=== PATIENT | female | born 1970 | race Caucasian/White ===

== ENCOUNTER 2024-06-08 05:10 | Emergency (ER) | payer BC, SELFPAY ==
[2024-06-08] VITALS (11 sets, daily range): BP systolic 95–115; BP diastolic 64–97; PULSE 92–106; BMI 32.3
[2024-06-08 05:45] LABS: % Basophils 0.3 % (0-2); % Eosinophils 0.4 % (0-6); % Immature Granulocytes 0.4 % (0-0.5); % Lymphocytes 9.7 % (20.5-51.1); % Monocytes 3.4 % (1.7-9.3); % Neutrophils 85.8 % (42.2-75.2); Absolute Lymphocytes 1.1 10^3/uL (1.2-3.4); Absolute Monocytes 0.4 10^3/uL (0.1-0.6); Absolute Neutrophils 9.6 10^3/uL (1.4-6.5); Hematocrit 39.1 % (37.0-47.0); Hemoglobin 13.9 g/dL (12.0-16.0); Mean Corp Hgb Conc. 35.5 g/dL (33.0-37.0); Mean Corpuscular Hgb 30.5 pg (27.0-31.0); Mean Corpuscular Volume 85.9 fL (81.0-99.0); Mean Platelet Volume 10.7 fL (7.4-10.4); Nucleated Red Blood Cells % 0 %; Platelet Count 346 10^3/uL (130-400); Red Blood Cell Count 4.55 10^6/uL (4.20-5.40); Red Cell Dist. Width 11.9 % (11.5-14.5); White Blood Cell Count 11.2 10^3/uL (4.8-10.8)
[2024-06-08 06:00] LABS: Troponin I < 0.012 ng/ml
--- NOTE | 2024-06-08 06:16 | ED.GENMED ---
History of Present Illness
General
Chief Complaint: Fainting/Passed Out
Time Seen by Provider: 06/08/24 06:03
History of Present Illness
History of Present Illness:
Patient is a 53-year-old woman with history of hypertension presenting to the emergency department after syncopal event. Patient states that she woke up this morning to use the bathroom. She urinated and there was washing her hands when she
started to get sweaty and thought she was having a hot flash which was normal to her. She does remember getting nauseous. The Nexium that she remembers that she woke up on the ground. She did hit her head. heard a thud and said that she
was only out for a few seconds. No urinary incontinence. No tongue biting. She was slightly confused for a few seconds. Her complaint is left-sided head pain after the fall. She also states that her indigestion has been acting up. She states
that she only had chicken tenders and some nuts and did not have a real dinner. She does usually have heartburn. She denies any chest pain or shortness of breath. No numbness tingling. No weakness. No hemoptysis leg swelling history of heart
problems or history of blood clots. She states that during that moment when she passed out she does not member much besides getting the hot flash and nausea. She states that currently she has lightheaded dizzy with any position changes and is
having occasional palpitations. She denies any palpitations during the actual event. No fevers chills. No nausea or vomiting. No diarrhea
Past History
Past History
ED Past Medical History: None
ED Past Surgical History: None
Social History
Tobacco: Non-smoker
Personal:
Family History
Family History: Negative Early CAD or CAD
Phy Exam
Physical Exam
Physical Exam:
GENERAL: in no acute distress
HEENT: normocephalic, extraocular movements intact, moist oral mucosa, tenderness over left posterior occiput with small hematoma, no obvious bleeding or laceration
NECK: normal inspection, no cervical spinal tenderness
RESPIRATORY: no respiratory distress, clear to auscultation bilaterally
CARDIOVASCULAR: regular rate and rhythm
ABDOMEN/: soft, non-distended, non-tender to palpation, no rebound or guarding
EXTREMITIES: non-tender, no edema/swelling
NEUROLOGIC: awake and alert, moves all extremities, no gross motor or sensory deficits
SKIN: warm
Course
Orders/Labs/Results
Orders:
Orders
06/08/24 05:12
Electrocardiogram (*1) Urgent
Reason for Study: Syncope
06/08/24 05:13
EKG- Treatment ONCE
Test Result ONCE
06/08/24 05:25
Complete Blood Count/With Diff Urgent
Comprehensive Metabolic Panel Urgent
HCG, Serum Qualitative Screen Urgent
Magnesium Urgent
TSH Reflex To Free T4 Urgent
Comment: ADD ON
Troponin I Urgent
06/08/24 05:27
CT Head W/o Iv Contrast Urgent
Comment:
Reason For Exam: fall with head strike
Cervical Spine wo Contrast CT [CT Cervical Spine W/o Iv Contr] Urgent
Comment:
Reason For Exam: fall with head strike
06/08/24 06:15
Add On- LAB Urgent
Tests Added?: magnesium, thyroid with reflex
EKG- Treatment ONCE
Orthostatic VS- Treatment ONCE
06/08/24 06:45
0.9% Sodium Chloride 1000 ml [Nss] 1,000 ml IV BOLUS
06/08/24 07:14
Acetaminophen [Tylenol] 1,000 mg .ROUTE .STK-MED ONE
06/08/24 07:15
Acetaminophen [Tylenol] 1,000 mg PO NOW STA
06/08/24 08:30
Electrocardiogram (*1) Urgent
Reason for Study: Chest Pain
06/08/24 08:44
Troponin I Urgent
06/08/24 09:36
Ibuprofen [Motrin] 600 mg PO NOW STA
Abnormal Lab Results
06/08/24
05:25
WBC 11.2 H 10^3/uL
(4.8-10.8)
MPV 10.7 H fL
(7.4-10.4)
Absolute Neuts (auto) 9.6 H 10^3/uL
(1.4-6.5)
Absolute Lymphs (auto) 1.1 L 10^3/uL
(1.2-3.4)
Neutrophils % 85.8 H %
(42.2-75.2)
Lymphocytes % 9.7 L %
(20.5-51.1)
Chloride 108 H mmol/L
(98-107)
BUN 25 H mg/dl
(7-17)
Glucose 108 H mg/dl
(70-99)
Calcium 10.4 H mg/dl
(8.4-10.2)
06/08/24 05:25
06/08/24 05:25
Vital Signs
Pulse: 81
Blood pressure: 115/86
Initial and Last Documented VS:
Initial Vital Signs
Temp Pulse Resp BP Pulse Ox
98.1 F 89 16 107/82 100
06/08/24 05:16 06/08/24 05:16 06/08/24 05:16 06/08/24 05:16 06/08/24 05:16
Last Documented Vital Signs
Temp Pulse Resp BP Pulse Ox
98.1 F 81 20 115/86 100
06/08/24 05:16 06/08/24 10:40 06/08/24 07:45 06/08/24 10:40 06/08/24 05:30
MDM/Problems Addressed
Differential Diagnosis Includes:
Patient is a 53-year-old woman presenting to the emergency department after syncopal event. On arrival patient's blood pressure is 107/82 and exam is otherwise reassuring. Differential consists of vasovagal versus orthostatic syncope given that
patient is getting lightheaded dizzy with movements. Could be ACS given that patient is having some indigestion with the nausea. History exam not consistent with seizures or acute intracranial cause such as hemorrhage or stroke. History exam not
consistent with PE or AAA rupture. History and exam not consistent with cardiac arrhythmia. Patient is low risk based on [place] syncope rule which is reassuring. Initial troponin was negative. Will obtain delta troponin. EKG per my
interpretation with anterior T wave inversions which is new from 2012. Will obtain CT scan of the head and neck. Given the palpitations will check magnesium and thyroid.
*Critical Care Note
Total Time (30-74mins, 75-104mins- exclusive of procedures): Not Applicable
Update Note
Update Note:
Patient blood pressure still remains slightly low. Will give additional IV fluids. Patient does state that she is on an antihypertensive. I did advise patient to check her blood pressure daily and if it is low (less than 110 systolic) to hold it.
Per chart review does appear the patient's had low blood pressure last time she was admitted as well.
Blood work is reassuring. Delta troponin negative. Repeat EKG without any new changes. Will give pt cards to follow up with on a routine basis.
On reevaluation patient feels much better. Her BP has improved. She did ambulate without lightheadedness or dizziness. I did update patient of the findings on her CT scan of her neck. She will follow-up with primary care doctor. She does have
intermittent tingling of her fingers. The symptoms are not bothersome. I will give her neurosurgery in case symptoms worsen.
Patient does state that she feels slightly off. Her white count is slightly elevated. Her does state that she was having chills. Certainly could be the beginnings of a viral illness. She is afebrile here. She has no urinary symptoms
source. She does appear slightly congested. I did discuss with patient and at length. I did offer admission for monitoring given the syncopal event. However patient states that she does remember feeling 'off' with a hot flash which is
unusual. This could have been the prodrome to her passing out since it was not her typical hot flash. Regardless we did discuss admission versus discharge. At this time patient would prefer discharge home. Her will be with her today.
Will discharge at this time with strict return precautions.
ED Attending Note
-
Portions of this chart may have been created with voice recognition software.� Occasional wrong word or��sound alike� substitutions may have occurred due to the inherent limitations of voice recognition software.
Discharge Plan
Departure
Patient Disposition: Home (Routine Discharge)
Date of Disposition: 06/08/24
Time of Disposition: 10:40
Patient with high blood pressure during this ER visit?: No
Discharge Problem:
Syncope, Nonspecific ST-T wave electrocardiographic changes
Instructions: Syncope (Fainting) (DC)
Prescriptions:
No Action
ustekinumab [Stelara] 45 MG/0.5 ML syringe
45 mg SQ .[id number]
clonazepam 0.5 MG tablet
0.5 mg PO TID
Referrals:
Rafita Helms MD [Active] - Call in 1-3 days for appt (EKG changes)
Trisha Ugalde MD [Active] - As needed
UNKNOWN - PT DOES,NOT KNOW [Family Provider] -
Activity Restrictions/Additional Instructions:
1. Moderate spinal cord compression and central canal stenosis at C4/C5 secondary to a large central disc-osteophyte complex with an 8.2 mm ossification in the anterior epidural space. Ossification of the posterior longitudinal ligament is a
diagnostic possibility.
2. 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
3. Small left central disc herniation at C3/C4 causing mild spinal cord compression and central canal stenosis.
4. Mild kyphosis at C4/C5.
Interventions
Interventions:
*Risk Screen - Suicide Last Done: 06/08/24 05:16
*General Assessment Last Done: 06/08/24 05:16
*Neglect/Abuse Screening Last Done: 06/08/24 05:16
*ED COVID-19 Vaccine History Last Done: 06/08/24 05:16
ED- Cardiac Assessment Last Done: 06/08/24 05:33
ED- Neurological Assessment Last Done: 06/08/24 05:33
Discharge Date and Time
Print Language: CZECH
[2024-06-08 06:17] LABS: HCG, Serum Qualitative Screen Negative
[2024-06-08 06:25] LABS: ALT (SGPT) 18 U/L (0-35); AST (SGOT) 20 U/L (14-36); Albumin 4.8 g/dl (3.5-5.0); Alkaline Phosphatase 106 U/L (38-126); Blood Urea Nitrogen 25 mg/dl (7-17); Calcium 10.4 mg/dl (8.4-10.2); Carbon Dioxide 22 mmol/L (22-30); Chloride 108 mmol/L (98-107); Estimated Creatinine Clearance 82 ml/min; Glucose 108 mg/dl (70-99); Potassium 3.9 mmol/L (3.5-5.1); Sodium 142 mmol/L (135-145); Total Bilirubin 0.4 mg/dl (0.2-1.3); Total Protein 7.3 g/dl (6.3-8.2); eGFR > 60.00
[2024-06-08] MEDS: NSS 1000 IV (07:10)
[2024-06-08] MEDS: TYLENOL 1000 MG PO (07:15)
[2024-06-08 09:22] LABS: Troponin I < 0.012 ng/ml
[2024-06-08] MEDS: MOTRIN 600 MG PO (09:43)
== END 2024-06-08 10:50 | disposition home or self-care (01) ==
LOC: EMR 05:10
PROVIDERS: Emergency Medicine; EMERGENCY PHYSICIAN Student in an Organized Health Care Education/Training Program
DX: R55 Syncope and collapse (principal); R94.31 Abnormal electrocardiogram [ECG] [EKG]; I10 Essential (primary) hypertension
CPT/HCPCS: 99284; 96360; 70450; 72125; 80053; 83735; 84443; 84484; 84703; 85025; 93005

== ENCOUNTER → 2024-06-27 13:33 | Outpatient (REF) | payer BC, SELFPAY | LOC: RCS 13:33 | PROVIDERS: ATTENDING PHYSICIAN Internal Medicine Cardiovascular Disease; FAMILY PHYSICIAN Family Medicine | DX: R55 Syncope and collapse (principal) | CPT/HCPCS: 93017 ==

== ENCOUNTER → 2024-07-04 12:54 | Outpatient (REF) | payer BC, SELFPAY | LOC: HWRCS 12:54 | PROVIDERS: ATTENDING PHYSICIAN Internal Medicine Cardiovascular Disease; FAMILY PHYSICIAN Family Medicine | DX: R55 Syncope and collapse (principal) | CPT/HCPCS: 93306 ==

== ENCOUNTER → 2024-07-05 14:19 | Outpatient (REF) | payer BC, SELFPAY | LOC: RCS 14:19 | PROVIDERS: ATTENDING PHYSICIAN Internal Medicine Cardiovascular Disease; FAMILY PHYSICIAN Family Medicine | DX: R55 Syncope and collapse (principal); I10 Essential (primary) hypertension | CPT/HCPCS: 93017; 93350 ==

== ENCOUNTER → 2024-12-12 06:36 | Outpatient (REF) | payer BC, SELFPAY | LOC: WDC 06:36 | PROVIDERS: ATTENDING PHYSICIAN Family Medicine | DX: Z12.31 Encounter for screening mammogram for malignant neoplasm of breast (principal) | CPT/HCPCS: 77063; 77067 ==